=== PATIENT | female | born 1945 | race Hispanic/Latino ===

== ENCOUNTER → 2017-10-23 | Outpatient (CLI) | payer OTHER | END | disposition home or self-care (01) | LOC: RAH 11:10 | PROVIDERS: ATTEND Family Medicine | DX: Z12.31 Encounter for screening mammogram for malignant neoplasm of breast (principal) | CPT/HCPCS: 77067 ==

== ENCOUNTER 2018-06-01 08:20 | Emergency (ER) | payer OTHER ==
[2018-06-01] MEDS ORDERED: TETRACAINE HCL 0.5% 4 ML OPHTH SOLN ONE (09:06)
[2018-06-01 09:25] LABS: APPEARANCE,URINE Cloudy (CLEAR); BILIRUBIN,URINE Negative (NEGATIVE); COLOR,URINE Yellow (YELLOW); GLUCOSE, URINE (UA) Negative (NEGATIVE); KETONES,URINE Trace mg/dL (NEGATIVE); LEUKOCYTE ESTERASE ,URINE Moderate (NEGATIVE); NITRATE,URINE Negative (NEGATIVE); OCCULT BLOOD,URINE Small (NEGATIVE); PH,URINE 8.5 (5.0-8.0); PROTEIN,URINE Trace (NEGATIVE); UROBILINOGEN,URINE 0.2 mg/dL (0.2-1.0)
[2018-06-01 09:30] LABS: BASOPHILS % (AUTO) 0.8 % (0.0-5.0); EOSINOPHILS % (AUTO) 0.1 % (0.0-8.0); HEMATOCRIT 38.2 % (36-48); LYMPHOCYTES % (AUTO) 14.2 % (21.0-51.0); MEAN CORPUSCULAR HEMOGLOBIN 29.1 pg (27.0-33.0); MEAN CORPUSCULAR HGB CONC 34.5 g/dL (32.0-36.0); MEAN CORPUSCULAR VOLUME 84.2 fL (79-99); MONOCYTES % (AUTO) 4.4 % (3.0-13.0); NEUTROPHILS % (AUTO) 80.5 % (40.0-77.0); PLATELET COUNT (AUTO) 159 K/uL (130-400); RED BLOOD CELL COUNT(AUTO) 4.54 MIL/uL (4.00-5.50); RED CELL DISTRIBUTION WIDTH 15.2 % (11.0-15.5); WHITE BLOOD COUNT (AUTO) 4.1 K/uL (4.8-10.8)
[2018-06-01 09:35] LABS: CREATININE 0.7 mg/dL (0.5-1.5); POTASSIUM 3.5 mmol/L (3.5-5.1)
[2018-06-01 09:37] LABS: BACTERIA,URINE Few /HPF (None Seen); MUCUS,URINE Few LPF (None Seen); SQUAMOUS EPITHELIAL CELL,UR Few /HPF (0-2); WBC,URINE 0-1 /HPF (0-1)
[2018-06-01 09:42] LABS: ALBUMIN 4.7 g/dL (3.5-5.0); BILIRUBIN,TOTAL 0.7 mg/dL (0.2-1.0); TOTAL PROTEIN, SERUM 8.2 g/dL (6.0-8.3)
[2018-06-01] MEDS ORDERED: DiphenhydrAMINE HCL 50 MG/ML VIAL ONE (10:26)
[2018-06-01] MEDS ORDERED: KETOROLAC TROMETHAMINE 15MG/ML ONE (10:26)
== END 2018-06-01 12:50 | disposition home or self-care (01) ==
LOC: EDH 08:20
DX: I16.9 Hypertensive crisis, unspecified (principal); R51 Headache; H40.9 Unspecified glaucoma; G20 Parkinson's disease; E07.9 Disorder of thyroid, unspecified; Z90.710 Acquired absence of both cervix and uterus
CPT/HCPCS: 36415; 70450; 71045; 80053; 81001; 82550; 84484; 85025; 87804 ×2; 93005; 96374; 96375; 99284; J1200; J1885

== ENCOUNTER → 2019-11-20 | Outpatient (CLI) | payer OTHER | END | disposition home or self-care (01) | LOC: OIH 09:59 | PROVIDERS: ATTEND Family Medicine | DX: M47.817 Spondylosis without myelopathy or radiculopathy, lumbosacral region (principal); M16.12 Unilateral primary osteoarthritis, left hip | CPT/HCPCS: 72100; 73502 ==

== ENCOUNTER 2020-05-05 14:43 | Inpatient (IN) | payer OTHER ==
[~2020-05-05] VITALS: Ht 160 cm; Wt 64.0 kg
[2020-05-05 15:33] LABS: BASOPHILS % (AUTO) 0.3 % (0.0-5.0); EOSINOPHILS % (AUTO) 3.3 % (0.0-8.0); HEMATOCRIT 30.4 % (36-48); LYMPHOCYTES % (AUTO) 11.9 % (21.0-51.0); MEAN CORPUSCULAR HEMOGLOBIN 26.9 pg (27.0-33.0); MEAN CORPUSCULAR HGB CONC 31.6 g/dL (32.0-36.0); MEAN CORPUSCULAR VOLUME 85.2 fL (79-99); MONOCYTES % (AUTO) 8.1 % (3.0-13.0); NEUTROPHILS % (AUTO) 76.1 % (40.0-77.0); PLATELET COUNT (AUTO) 201 K/uL (130-400); RED BLOOD CELL COUNT(AUTO) 3.57 MIL/uL (4.00-5.50); RED CELL DISTRIBUTION WIDTH 14.8 % (11.0-15.5); WHITE BLOOD COUNT (AUTO) 5.8 K/uL (4.8-10.8)
[2020-05-05 15:45] LABS: CARBON DIOXIDE 29 mmol/L (21-32); CHLORIDE 101 mmol/L (101-111); CREATININE 0.7 mg/dL (0.5-1.5); GLOMERULAR FILTR. RATE CALC 86 mL/min (>60); GLUCOSE,RANDOM 102 mg/dL (70-105); POTASSIUM 3.7 mmol/L (3.5-5.1); SODIUM SERUM 137 mmol/L (136-145); UREA NITROGEN, BLOOD 17 mg/dL (7-18)
[2020-05-05 15:47] LABS: INR 0.98 (0.85-1.15); PARTIAL THROMBOPLASTIN TIME 30.7 SEC (26.3-35.5); PROTHROMBIN TIME 10.6 SEC (9.6-11.6)
[2020-05-05 15:49] LABS: ALBUMIN 3.5 g/dL (3.5-5.0); ASPARTATE AMINOTRANSFERASE 14 U/L (10-37); BILIRUBIN,TOTAL 0.5 mg/dL (0.2-1.0); LIPASE 78 U/L (114-286); TOTAL PROTEIN, SERUM 7.1 g/dL (6.0-8.3)
[2020-05-05] MEDS ORDERED: SODIUM CHLORIDE 0.9% 500ML 500 ML IV ONE (16:14)
[2020-05-05 16:20] LABS: ALANINE AMINOTRANSFERASE < 6 U/L (12-78)
[2020-05-05] MEDS: LACTATED RINGERS 1000ML 1,000 ML IV SCH (17:30)
[2020-05-05] MEDS ORDERED: ONDANSETRON HCL 4 MG/2 ML VIAL IVP PRN (17:30)
[2020-05-05] MEDS ORDERED: ACETAMINOPHEN 650 MG SUPPOSITORY RC PRN (17:30)
[2020-05-05] MEDS ORDERED: LABETALOL 20 MG/4 ML DISP.SYRIN IV PRN (17:30)
[2020-05-05 17:34] LABS: APPEARANCE,URINE Turbid (CLEAR); BILIRUBIN,URINE Negative (NEGATIVE); COLOR,URINE Yellow (YELLOW); GLUCOSE, URINE (UA) Negative (NEGATIVE); KETONES,URINE Trace mg/dL (NEGATIVE); LEUKOCYTE ESTERASE ,URINE Large (NEGATIVE); NITRATE,URINE Negative (NEGATIVE); OCCULT BLOOD,URINE Small (NEGATIVE); PH,URINE 6.5 (5.0-8.0); PROTEIN,URINE Trace mg/dL (NEGATIVE)
[2020-05-05 18:00] LABS: BACTERIA,URINE Few /HPF (None Seen); RBC,URINE None Seen /HPF (0-1)
[2020-05-05] MEDS ORDERED: LACTATED RINGERS 1000ML 1,000 ML IV ONE (18:21)
[2020-05-05 22:10] VITALS: BP 167/90
--- NOTE | 2020-05-05 22:10 | NUR ---
ADMISSION NOTE: Admitted to floor via stretcher from ER. Fully awake and responsive. Denies feeling of pain. VS checked and recorded. Physical assessment done. ( see CPOE flow chart for full assessment). Plan of care initiated. Has PIV site to RAC #20g with 1L of LR at 125 ml/hr at the level of 700 ml via dial flow. Talked to daughter thru phone and asked regarding pt past medical hx. home meds listed. No apparent distress noted. Cared for and needs attended.
[2020-05-05] MEDS ORDERED: CARB-38 PO ×2 (23:35)
[2020-05-05] MEDS ORDERED: ROPI1TAB13 PO (23:35)
[2020-05-05] MEDS ORDERED: ATOR20TA65 PO (23:35)
[2020-05-05] MEDS ORDERED: HYDR-4457 PO (23:35)
[2020-05-05] MEDS ORDERED: BACL10TA PO (23:35)
[2020-05-05] MEDS ORDERED: QUET50TA55 PO (23:35)
[2020-05-05] MEDS ORDERED: LEVO100T12 PO (23:35)
[2020-05-05] MEDS ORDERED: CARB1TAB41 PO (23:35)
[2020-05-05] MEDS ORDERED: LORA-192 PO (23:35)
[2020-05-06] MEDS: LACTATED RINGERS 1000ML 1,000 ML IV SCH ×3 (03:18→17:33)
[2020-05-06 03:35] VITALS: BP 155/84
[2020-05-06 04:51] LABS: CREATININE 0.5 mg/dL (0.5-1.5); POTASSIUM 3.5 mmol/L (3.5-5.1)
[2020-05-06 08:00] VITALS: BP 150/89
[2020-05-06] MEDS ORDERED: PNEUMOCOCCAL VACCINE POLYVALENT 0.5 ML/VIAL [PPV] IM ONE ×2 (09:00→20:30)
--- NOTE | 2020-05-06 10:45 | NUR ---
MBSS COMPLETED. +S/S OF ASPIRATION WITH PUREED. RECOMMEND NPO, LONG-TERM ALTERNATE MEANS OF NUTRITION/HYDRATION. PARI MUTUAL TICKET CHECKER EDUCATED Pt AND DAUGHTER EXTENSIVELY ON RISKS AND CONSEQUENCES OF ASPIRATION INCLUDING ASPIRATION PNA, DRUG RESISTANT PNA AND FATALITY. THEY VERBALIZED UNDERSTANDING. PARI MUTUAL TICKET CHECKER REVIEWED RESULTS AND RECOMMENDATIONS AT THIS TIME. PARI MUTUAL TICKET CHECKER ANSWERED ALL QUESTIONS AT THIS TIME. DAUGHTER WOULD LIKE SOME TIME TO TALK TO HER FATHER ON WHAT THEY ARE GOING TO DO. PARI MUTUAL TICKET CHECKER REVIEWED ORAL CARE RECOMMENDATIONS AND MOUTH MOISTENING OPTIONS DURING NPO STATUS. NURSE ANDREW IN THE ROOM DURING EDUCATION. Addendum: 05/06/20 at 1347 [address] [facility] Amended: Links added.
[2020-05-06 11:00] VITALS: BP 152/90
[2020-05-06] MEDS ORDERED: IOHEXOL-350 50ML VIAL IV ONE (14:23)
[2020-05-06 16:00] VITALS: BP 126/77
--- NOTE | 2020-05-06 17:33 | NUR ---
DC PLAN PATIENT LIVES WITH SPOUSE. INDEPENDENT ABLE TO PERFORM ADL'S. PATIENT HAS WHEEL CHAIR AND CANE. NO SERVICES. FEELS SAFE TO RETURN HOME. Addendum: 05/06/20 at 1734 by APOLINAR ORONA RN CM Amended: Links added.
[2020-05-06] MEDS: CEFTRIAXONE SODIUM 1 GM IVP SCH (18:09)
[2020-05-06 20:00] VITALS: BP 135/72
[2020-05-06] MEDS ORDERED: LEVODOPA PO SCH ×2 (20:30)
[2020-05-06] MEDS ORDERED: [UNRECOGNIZED DRUG - OTHER] PO SCH (20:30)
[2020-05-06] MEDS ORDERED: [UNRECOGNIZED DRUG - OTHER] PO SCH (20:30)
[2020-05-06] MEDS ORDERED: CARBIDOPA PO SCH ×2 (20:30)
[2020-05-06] MEDS ORDERED: PHARMACY COMMUNICATION MISC SCH (20:45)
[2020-05-06] MEDS: FAMOTIDINE/PF 20 MG/2 ML VIAL IV SCH (23:37)
--- NOTE | 2020-05-06 23:50 | NUR ---
INSERTED 14FR SALEM SUMP VIA RIGHT NARE USING STERILE TECHNIQUE. TUBE SECURED, CHECKED FOR PATENCY AND STARTED GLUCERNA 1.5 AT 20CC/HR, TO INCREASE BY 10CC EVERY 4HOURS UP TO GOAL OF 50CC/HR. INSERTION TOLERATED WITH MINIMAL VOICED DISCOMFORT
[2020-05-07] VITALS (7 sets, daily range): BP systolic 114–147; BP diastolic 52–95
[2020-05-07] MEDS: ATORVASTATIN CALCIUM 20 MG TABLET PO SCH ×2 (00:20→19:54)
[2020-05-07] MEDS: LORAZEPAM 1 MG TABLET PO PRN (00:20)
[2020-05-07] MEDS: ROPINIROLE HCL 1 MG TABLET PO SCH ×5 (00:20→19:56)
[2020-05-07] MEDS: LACTATED RINGERS 1000ML 1,000 ML IV SCH ×4 (03:26→23:28)
[2020-05-07] MEDS: LEVOTHYROXINE 100 MCG TABLET PO SCH (06:18)
[2020-05-07] MEDS ORDERED: CARB-38 PO (08:36)
[2020-05-07] MEDS ORDERED: NON-FORMULARY MEDICATION 1 EACH (Quetiapine Fumarate 50 MG) PO SCH (09:00)
[2020-05-07] MEDS: FAMOTIDINE/PF 20 MG/2 ML VIAL IV SCH ×2 (10:12→19:54)
[2020-05-07] MEDS: QUETIAPINE FUMARATE 25 MG TAB PO SCH (10:12)
[2020-05-07] MEDS: BACLOFEN 10 MG TABLET PO SCH (10:12)
--- NOTE | 2020-05-07 11:06 | NUR ---
DAUGHTER AT BEDSIDE CONCERNED ABOUT PATIENT NOT HAVING HER NORMAL URINE OUTPUT. JOSSELYN PRINCE CALLED. ORDERS FOR STRAIGHT CATH RECEIVED. BLADDER SCANNER SHOWING 0 CC.
--- NOTE | 2020-05-07 11:29 | NUR ---
JOSSELYN PRINCE MADE AWARE OF PENDING [facility] MEDICATIONS TO BE RECONCILE.
[2020-05-07] MEDS: HYDROCODONE/ACETAMINOPHEN 5/325 MG TAB PO PRN (11:52)
--- NOTE | 2020-05-07 12:33 | NUR ---
CALLED DR CARMONA OFFICE TWO TIMES IN WHICH EACH TIME I WAS DISCONNECTED FROM THE ANSWERING SERVICE.
[2020-05-07] MEDS: PHARMACY COMMUNICATION MISC SCH ×3 (12:45→20:45)
--- NOTE | 2020-05-07 12:57 | NUR ---
ZEV MONET FROM DR CARMONA OFFICE RETURNED MY CALL. STATED THAT DR CARMONA IS NOT TUBE HANDLER BUT THAT SHE WILL GIVE HIM THE INFORMATION ON SATURDAY.
--- NOTE | 2020-05-07 15:41 | NUR ---
SPOKE TO DR THAO REGARDING THE ORDER FOR THYROID MASS BIOPSY. NO PROCEDURE TODAY. TO BE SCHEDULED FOR SATURDAY.
--- NOTE | 2020-05-07 16:44 | NUR ---
GI CONSULT CALLED DR BRICEÑO TO HIS CELLPHONE. VOICEMAIL LEFT. ANSWERING SERVICE ALSO CALLED. WAITING FOR DR BRICEÑO TO CALL BACK.
--- NOTE | 2020-05-07 17:00 | NUR ---
DR BRICEÑO CALLED BACK. POC DISCUSSED. PATIENT NEEDS A EGD WITH PEG TUBE PLACEMENT. MR NUMBER PROVIDED. DR BRICEÑO REQUESTED A COVID PCR STAT, NPO AFTER MIDNIGHT. STATED THAT HE WILL CALL BACK LATER TODAY FOR MORE ORDERS. NO ORDERS FOR PROCEDURE AT THIS POINT.
[2020-05-07] MEDS: CEFTRIAXONE SODIUM 1 GM IVP SCH (17:22)
[2020-05-07] MEDS ORDERED: POTASSIUM CHLORIDE 10% ELIXIR 20 MEQ/15 ML UDCUP PO ONE (20:00)
[2020-05-08] VITALS (26 sets, daily range): BP systolic 131–182; BP diastolic 66–105
[2020-05-08] MEDS: PHARMACY COMMUNICATION MISC SCH ×2 (00:18→03:51)
[2020-05-08] MEDS: LEVOTHYROXINE 100 MCG TABLET PO SCH (05:32)
[2020-05-08 06:02] LABS: HEMATOCRIT 26.4 % (36-48); MEAN CORPUSCULAR HEMOGLOBIN 27.4 pg (27.0-33.0); MEAN CORPUSCULAR HGB CONC 32.6 g/dL (32.0-36.0); MEAN CORPUSCULAR VOLUME 84.1 fL (79-99); RED BLOOD CELL COUNT(AUTO) 3.14 MIL/uL (4.00-5.50); RED CELL DISTRIBUTION WIDTH 14.9 % (11.0-15.5); WHITE BLOOD COUNT (AUTO) 6.5 K/uL (4.8-10.8)
[2020-05-08 06:43] LABS: CREATININE 0.5 mg/dL (0.5-1.5); POTASSIUM 3.7 mmol/L (3.5-5.1)
[2020-05-08] MEDS: ROPINIROLE HCL 1 MG TABLET PO SCH ×4 (09:00→21:36)
[2020-05-08] MEDS: BACLOFEN 10 MG TABLET PO SCH (09:00)
[2020-05-08] MEDS: QUETIAPINE FUMARATE 25 MG TAB PO SCH (09:00)
[2020-05-08] MEDS: FAMOTIDINE/PF 20 MG/2 ML VIAL IV SCH ×2 (09:28→21:36)
[2020-05-08] MEDS: CARBIDOPA-LEVODOPA 25-100 TAB PO SCH ×3 (11:00→18:23)
[2020-05-08] MEDS ORDERED: FENTANYL CITRATE PF 50 MCG/1 ML 2ML VIAL ONE (12:20)
[2020-05-08] MEDS ORDERED: CEFAZOLIN SODIUM 1 GM VIAL ONE (12:21)
[2020-05-08] MEDS ORDERED: MIDAZOLAM HCL 1 MG/ML 2ML VIAL ONE ×2 (12:21→12:41)
[2020-05-08] MEDS ORDERED: LABETALOL HCL 5 MG/ML 20ML VIAL IV ONE (13:26)
--- NOTE | 2020-05-08 14:24 | NUR ---
PT ARRIVED BACK TO UNIT POST PEG PLACEMENT. PT STABLE BP SLIGHTLY ELEVATED. PT DENIES ANY PAIN. PT AAO. DAUGHTER AT BEDSIDE. PER MD ORDERS MEDS MAY BE GIVEN TO PT VIA PEG. FEEDING ON HOLD FOR 4 HRS, AWAITING DIETITIAN RECOMMENDATIONS. PT IN NO APPARENT DISTRESS. WILL CONTINUE TO MONITOR PT.
--- NOTE | 2020-05-08 16:14 | NUR ---
CALLED [employer] [facility]. NO ANSWER. LEFT MESSAGE, PENDING CALL BACK.
[2020-05-08] MEDS: LACTATED RINGERS 1000ML 1,000 ML IV SCH ×2 (17:30→21:36)
[2020-05-08] MEDS: CEFTRIAXONE SODIUM 1 GM IVP SCH (18:23)
[2020-05-08] MEDS: ATORVASTATIN CALCIUM 20 MG TABLET PO SCH (21:36)
[2020-05-09] VITALS (8 sets, daily range): BP systolic 115–181; BP diastolic 61–99
[2020-05-09] MEDS: LACTATED RINGERS 1000ML 1,000 ML IV SCH ×4 (01:13→20:11)
[2020-05-09 05:26] LABS: HEMATOCRIT 25.8 % (36-48); MEAN CORPUSCULAR HEMOGLOBIN 26.7 pg (27.0-33.0); MEAN CORPUSCULAR HGB CONC 32.6 g/dL (32.0-36.0); MEAN CORPUSCULAR VOLUME 81.9 fL (79-99); RED BLOOD CELL COUNT(AUTO) 3.15 MIL/uL (4.00-5.50); RED CELL DISTRIBUTION WIDTH 14.7 % (11.0-15.5); WHITE BLOOD COUNT (AUTO) 6.6 K/uL (4.8-10.8)
[2020-05-09 05:40] LABS: INR 1.15 (0.85-1.15); PROTHROMBIN TIME 12.4 SEC (9.6-11.6)
[2020-05-09 05:51] LABS: CREATININE 0.5 mg/dL (0.5-1.5); POTASSIUM 3.1 mmol/L (3.5-5.1)
[2020-05-09] MEDS ORDERED: POTASSIUM CHLORIDE 10% ELIXIR 20 MEQ/15 ML UDCUP ONE (05:59)
[2020-05-09] MEDS: CARBIDOPA-LEVODOPA 25-100 TAB PO SCH ×4 (06:18→16:28)
[2020-05-09] MEDS: LEVOTHYROXINE 100 MCG TABLET PO SCH (06:18)
[2020-05-09] MEDS ORDERED: LIDOCAINE HCL-MPF 1% 2ML VIAL IV PRN (06:45)
[2020-05-09] MEDS ORDERED: POTASSIUM CHLORIDE 20MEQ/100ML 100 ML IV PRN (06:45)
[2020-05-09] MEDS ORDERED: POTASSIUM CHLORIDE 20 MEQ ERTAB PO PRN (06:45)
[2020-05-09] MEDS: BACLOFEN 10 MG TABLET PO SCH (09:00)
[2020-05-09] MEDS ORDERED: PANTOPRAZOLE SODIUM 40 MG TABLET.DR GT SCH (09:00)
[2020-05-09] MEDS: FAMOTIDINE/PF 20 MG/2 ML VIAL IV SCH ×2 (09:00→20:12)
[2020-05-09] MEDS: ROPINIROLE HCL 1 MG TABLET PO SCH ×4 (09:00→20:12)
[2020-05-09] MEDS: QUETIAPINE FUMARATE 25 MG TAB PO SCH (09:00)
--- NOTE | 2020-05-09 11:45 | NUR ---
U/S GD RT THYROID FNA PROCEDURE PERFORMED BY DR Mary BRYANT. PUNCTURE SITE RT NECK AND PATIENT TOLERATED PROCEDURE WELL. SPECIMEN X 5 COLLECTED AND SENT TO LAB. END OF PROCEDURE AT 1130. ASPIRATION NEEDLE REMOVED AND DRESSING APPLIED. NO BLEEDING NOTED. REPORT GIVEN TO JOSH WING AND PATIENT TRANSPORTED TO [facility] VIA BED AT 1145. AAO X3 WITH NO C/O PAIN.
--- NOTE | 2020-05-09 11:45 | NUR ---
FOLLOW UP COMPLETED. Pt RECEIVED PEG OVER THE WEEKEND. NPO AT THIS TIME. [employer] WILL CONTINUE TO FOLLOW Pt. Addendum: 05/09/20 at 1147 by MINA UNNES, [facility] Amended: Links added.
--- NOTE | 2020-05-09 12:37 | NUR ---
CM NOTE/POSS SNF VS HOME WITH HH MET WITH PATIENT AND DAUGHTER, RAMOS MONET, AT BEDSIDE. [facility]A HAD BEEN COMPLETED FOR HH WITH PEG TUBE SUPPLIES. PER AUTOMATIC DOOR MECHANIC FOR [employer], RECOMMENDING SNF FOR NURSING CARE/PEG TUBE CARE/MEDICATION MANAGEMENT. THIS REPORTED TO DAUGHTER, AND SNFs IN NETWORK WITH [facility] GIVEN TO DAUGHTER. PER DAUGHTER, WILL THINK ABOUT IT. CM TO FOLLOW UP FOR DC PLAN.
--- NOTE | 2020-05-09 12:54 | NUR ---
RD NOTIFICATION Pt admitted due to dysphagia on 05/05/20 RD consulted for TF recommendations. At time of visit pt was not in room due to biopsy of thyroid mass RD spoke to daughter. As per daughter, previous known weight was of 134 lbs on 04/25/20. Current weight is of 127 lbs. This indicates a 95% UBW classified as mild malnutrition. 5% WT change in 14 days classified as severe unintentional wt loss Pt has had poor PO intake prior to admission due to dysphagia. Pt is at moderate-severe nutritional risk PEG has been placed 05/08/20 as per RN. Pt was initiated on Glucerna 1.5 TF previously with an NG tube. As per daughter no hx of DM. TF recommendations faxed to [address]C RD RECOMMENDATION: When medically feasible to initiate TF, consider Jevity 1.5 with a start rate of 20 ml/hr for first 8 hours, increase as tolerated by 5 ml Q5 hrs to a goal rate of 45 ml/hr. This provides: 1620 kcal, 69 gm protein, 821 free water Recommendation of 115 ml water flush Q4 hrs. Adjust as medically necessary. Monitor hydration, TF tolerance, labs, residuals. RD will continue to follow Contact dietary as nutritional concerns arise LABS: NA 135, K 3.1, CL 98, TOT CA 8.4, ALB 3.5, TOT PRO 7.1, LIPASE 78 LBM: 05/06/20 Addendum: 05/09/20 at [address] Amended: Links added.
[2020-05-09] MEDS: CEFTRIAXONE SODIUM 1 GM IVP SCH (17:26)
[2020-05-09] MEDS: HYDROCODONE/ACETAMINOPHEN 5/325 MG TAB PO PRN (17:27)
[2020-05-09] MEDS: ATORVASTATIN CALCIUM 20 MG TABLET PO SCH (20:12)
[2020-05-10 03:49] VITALS: BP 135/77
[2020-05-10 04:49] LABS: CREATININE 0.5 mg/dL (0.5-1.5); POTASSIUM 3.4 mmol/L (3.5-5.1)
[2020-05-10] MEDS: CARBIDOPA-LEVODOPA 25-100 TAB PO SCH ×4 (05:16→17:00)
[2020-05-10] MEDS: LEVOTHYROXINE 100 MCG TABLET PO SCH (05:16)
[2020-05-10] MEDS: POTASSIUM CHLORIDE 10% ELIXIR 20 MEQ/15 ML UDCUP PO PRN (05:16)
[2020-05-10 08:08] VITALS: BP 137/65
[2020-05-10] MEDS: FAMOTIDINE/PF 20 MG/2 ML VIAL IV SCH ×2 (08:35→19:59)
[2020-05-10] MEDS: QUETIAPINE FUMARATE 25 MG TAB PO SCH (08:35)
[2020-05-10] MEDS: LACTATED RINGERS 1000ML 1,000 ML IV SCH (08:35)
[2020-05-10] MEDS: ROPINIROLE HCL 1 MG TABLET PO SCH ×5 (08:35→21:00)
[2020-05-10] MEDS: BACLOFEN 10 MG TABLET PO SCH (08:35)
[2020-05-10 11:55] VITALS: BP 134/82
--- NOTE | 2020-05-10 12:36 | NUR ---
CM NOTE MET WITH PATIENT AND DAUGHTER AT BEDSIDE. PER DAUGHTER, PATIENT MORE AWAKE TODAY AND DAUGHTER WANTS TO DISCUSS DC PLAN WITH PATIENT FIRST BEFORE I TALK TO HER. CM TO FOLLOW UP LATER.
--- NOTE | 2020-05-10 14:29 | NUR ---
CM NOTE/[facility] PER DAUGHTER, OK WITH [facility]. [facility] COMPLETED FOR [facility]. REFERRAL MADE AND EMAILED TO MARIAH AND HERNANDEZ AT [facility] TO SUBMIT. PATIENT CONTINUES WITH PEG TUBE FEEDINGS TO REACH GOAL. CM TO FOLLOW UP.
[2020-05-10 15:31] VITALS: BP 141/86
[2020-05-10] MEDS: CEFTRIAXONE SODIUM 1 GM IVP SCH (16:59)
[2020-05-10 19:55] VITALS: BP 130/79
[2020-05-10] MEDS: ATORVASTATIN CALCIUM 20 MG TABLET PO SCH ×2 (19:59→21:00)
[2020-05-10] MEDS ORDERED: PHENOL 177 ML BOTTLE PO PRN (22:00)
[2020-05-11] VITALS (7 sets, daily range): BP systolic 89–143; BP diastolic 56–81
[2020-05-11] MEDS: CARBIDOPA-LEVODOPA 25-100 TAB PO SCH ×4 (05:48→15:33)
[2020-05-11] MEDS: LEVOTHYROXINE 100 MCG TABLET PO SCH (05:48)
[2020-05-11 05:55] LABS: HEMATOCRIT 25.5 % (36-48); MEAN CORPUSCULAR HEMOGLOBIN 26.8 pg (27.0-33.0); MEAN CORPUSCULAR HGB CONC 32.9 g/dL (32.0-36.0); MEAN CORPUSCULAR VOLUME 81.2 fL (79-99); RED BLOOD CELL COUNT(AUTO) 3.14 MIL/uL (4.00-5.50); RED CELL DISTRIBUTION WIDTH 14.7 % (11.0-15.5); WHITE BLOOD COUNT (AUTO) 5.5 K/uL (4.8-10.8)
[2020-05-11 06:21] LABS: ALBUMIN 2.3 g/dL (3.5-5.0); BILIRUBIN,TOTAL 0.4 mg/dL (0.2-1.0); CREATININE 0.4 mg/dL (0.5-1.5); MAGNESIUM 1.7 mg/dL (1.80-2.40); POTASSIUM 3.6 mmol/L (3.5-5.1); TOTAL PROTEIN, SERUM 5.6 g/dL (6.0-8.3)
[2020-05-11] MEDS ORDERED: MAGNESIUM 2GM PREMIX 50ML 50 ML IV SCH (07:45)
[2020-05-11] MEDS: FAMOTIDINE/PF 20 MG/2 ML VIAL IV SCH ×2 (09:54→20:03)
[2020-05-11] MEDS: BACLOFEN 10 MG TABLET PO SCH (09:54)
[2020-05-11] MEDS: ROPINIROLE HCL 1 MG TABLET PO SCH ×4 (09:54→20:03)
[2020-05-11] MEDS: QUETIAPINE FUMARATE 25 MG TAB PO SCH (09:54)
[2020-05-11] MEDS: SODIUM CHLORIDE 1,000 MG TAB PO SCH ×3 (09:54→20:03)
[2020-05-11] MEDS: ACETAMINOPHEN 325 MG TAB PO PRN ×2 (12:37→20:04)
--- NOTE | 2020-05-11 13:19 | NUR ---
CM NOTE PER DR. BEAVERS AND PRIMARY NURSE, ANDREW MORENO, PATIENT POSSIBLE THYROID CANCER, PENDING DR. BEAVERS AND DR. CARMONA RECOMMENDATIONS. PENDING AUTHORIZATION FOR [facility], MIGHT HAVE TO START CHEMO OR RADIATION PRIOR TO SNF, DAUGHTER AWARE. BUT WE ARE STILL PENDING FOR RECOMMENDATIONS. CM TO FOLLOW UP.
[2020-05-11] MEDS: CEFTRIAXONE SODIUM 1 GM IVP SCH (18:24)
[2020-05-11] MEDS: LACTULOSE 20 GM/30 ML UDCUP PEG SCH (18:24)
[2020-05-11] MEDS: POTASSIUM CHLORIDE 10% ELIXIR 20 MEQ/15 ML UDCUP PO PRN (20:02)
[2020-05-11] MEDS: ATORVASTATIN CALCIUM 20 MG TABLET PO SCH (20:03)
[2020-05-11] MEDS: LORAZEPAM 1 MG TABLET PO PRN (21:41)
[2020-05-12] MEDS: POTASSIUM CHLORIDE 10% ELIXIR 20 MEQ/15 ML UDCUP PO PRN (00:21)
[2020-05-12] MEDS: LACTULOSE 20 GM/30 ML UDCUP PEG SCH ×5 (00:21→20:11)
[2020-05-12 00:37] VITALS: BP 120/56
[2020-05-12 04:03] VITALS: BP 160/95
[2020-05-12 05:04] LABS: BASOPHILS % (AUTO) 0.2 % (0.0-5.0); EOSINOPHILS % (AUTO) 1.7 % (0.0-8.0); HEMATOCRIT 23.7 % (36-48); LYMPHOCYTES % (AUTO) 9.9 % (21.0-51.0); MEAN CORPUSCULAR HGB CONC 32.9 g/dL (32.0-36.0); MONOCYTES % (AUTO) 10.3 % (3.0-13.0); NEUTROPHILS % (AUTO) 77.4 % (40.0-77.0); PLATELET COUNT (AUTO) 139 K/uL (130-400); RED BLOOD CELL COUNT(AUTO) 2.89 MIL/uL (4.00-5.50); WHITE BLOOD COUNT (AUTO) 4.2 K/uL (4.8-10.8)
[2020-05-12] MEDS: LEVOTHYROXINE 100 MCG TABLET PO SCH (05:28)
[2020-05-12] MEDS: CARBIDOPA-LEVODOPA 25-100 TAB PO SCH ×4 (05:28→18:23)
[2020-05-12 05:41] LABS: ALBUMIN 2.1 g/dL (3.5-5.0); BILIRUBIN,TOTAL 0.3 mg/dL (0.2-1.0); CREATININE 0.4 mg/dL (0.5-1.5); MAGNESIUM 2.2 mg/dL (1.80-2.40); POTASSIUM 4.2 mmol/L (3.5-5.1); TOTAL PROTEIN, SERUM 5.3 g/dL (6.0-8.3)
[2020-05-12 08:14] VITALS: BP 132/74
[2020-05-12] MEDS: SODIUM CHLORIDE 1,000 MG TAB PO SCH ×3 (08:21→20:12)
[2020-05-12] MEDS: QUETIAPINE FUMARATE 25 MG TAB PO SCH (08:22)
[2020-05-12] MEDS: ROPINIROLE HCL 1 MG TABLET PO SCH ×4 (08:22→20:12)
[2020-05-12] MEDS: BACLOFEN 10 MG TABLET PO SCH (08:23)
[2020-05-12] MEDS: FAMOTIDINE/PF 20 MG/2 ML VIAL IV SCH ×2 (08:23→20:12)
[2020-05-12] MEDS: ACETAMINOPHEN 325 MG TAB PO PRN (08:31)
[2020-05-12 11:38] VITALS: BP 108/56
--- NOTE | 2020-05-12 17:00 | NUR ---
CM NOTE/ [facility] PENDING AUTH PER MARIAH AT [facility], AUTH PENDING.
[2020-05-12 17:15] VITALS: BP 118/63
--- NOTE | 2020-05-12 18:06 | NUR ---
CM NOTE/POSSIBLE HOSPICE CALL RECEIVED FROM ANDREW MORENO. PER NURSE, DR. BEAVERS TO COME AND TALK TO PATIENT AND DAUGHTER IN ROOM ABOUT PROGRESSION AND HOW FAST HER TYPE OF CANCER IS. PER NURSE, POSSIBLE HOSPICE CONSULT. ADVISED NURSE TO OBTAIN HOSPICE ORDERS IF FAMILY WISHES TO PROCEED WITH SERVICES.
[2020-05-12] MEDS: CEFTRIAXONE SODIUM 1 GM IVP SCH (18:24)
[2020-05-12 19:00] VITALS: BP 119/67
[2020-05-12] MEDS: ATORVASTATIN CALCIUM 20 MG TABLET PO SCH (20:12)
[2020-05-12] MEDS: LORAZEPAM 1 MG TABLET PO PRN (20:19)
[2020-05-13] VITALS: BP 105/66
[2020-05-13 04:00] VITALS: BP 137/75
[2020-05-13] MEDS: LEVOTHYROXINE 100 MCG TABLET PO SCH (05:46)
[2020-05-13] MEDS: CARBIDOPA-LEVODOPA 25-100 TAB PO SCH ×4 (05:47→17:46)
[2020-05-13] MEDS: ACETAMINOPHEN 325 MG TAB PO PRN ×2 (05:49→17:58)
--- NOTE | 2020-05-13 06:10 | NUR ---
patient has been asleep all night. we moved her every 2 hours on her sides. she has been tolerating her jevity 1.5 very well with residuals at 30 ml every 4 hours when i flush with 150 ml of free water. i flushed with water at 20:00, , midnight, and 04:00 am.
[2020-05-13] MEDS: FAMOTIDINE/PF 20 MG/2 ML VIAL IV SCH ×2 (08:18→22:07)
[2020-05-13] MEDS: ROPINIROLE HCL 1 MG TABLET PO SCH ×4 (08:18→22:07)
[2020-05-13] MEDS: SODIUM CHLORIDE 1,000 MG TAB PO SCH ×3 (08:18→22:07)
[2020-05-13] MEDS: QUETIAPINE FUMARATE 25 MG TAB PO SCH (08:18)
[2020-05-13] MEDS: BACLOFEN 10 MG TABLET PO SCH (08:25)
[2020-05-13 08:37] VITALS: BP 126/72
--- NOTE | 2020-05-13 10:00 | NUR ---
HOSPICE SS Referral for Hospice SW met with pt's dtr. Sara at bedside; attempted to speak w/pt, however, pt. sleeping and only opened her eyes briefly to look at this worker and fell back asleep. SW spoke with pt.'s dtr about orders for referral to hospice and dtr. reported that physician spoke with them as pt. is declining any further medical treatment and that pt. and family are in agreement for home hospice. This worker spoke with dtr. and provided information/education on hospice services, philosophy and OOHDNR, questions answered; dtr. verbalized an understanding. Dtr. spoke of pt's life prior to illness; SW provided emotional support. Dtr. signed [facility] for [facility]; referral made. SW offered [facility] services for prayer, however, dtr reported that [facility] already visited. Dtr. voiced no other SS needs or concerns at this time and was encouraged to contact SW for further needs. SW will continue to follow.
--- NOTE | 2020-05-13 11:00 | NUR ---
HOSPICE ACCEPTED [facility] accepted pt. for home hospice scheduled for tomorrow AM. Dtr made aware as well as [facility] RN. Report to be called to Vibha Aranda RN [phone]
[2020-05-13] MEDS: LACTULOSE 20 GM/30 ML UDCUP PEG SCH ×2 (11:11→17:37)
[2020-05-13 11:33] VITALS: BP 117/61
--- NOTE | 2020-05-13 12:59 | NUR ---
RD FOLLOW UP Pt is currently receiving TF Jevity 1.5 via PEG tube at a rate of 45 ml/hr Current water flushes are of 150 ml Q4 As per RN pt is tolerating TF well with a residual of 30 ml Pt has new dx of anaplastic cancer as per EMR Possible hospice upon discharge as per EMR. RD RECOMMENDATION; Continue current TF rate As per EMR pt has 2+ edema. Monitor water flushes and adjust as medically necessary Monitor TF tolerance Contact dietary as nutritional concerns arise LABS: WBC 4.2, NA 131, K 4.2, CL 48, CREAT 0.4, BG 120, TOT CA 8.4, ALB 2.1, TOT PRO 5.3 Addendum: 05/13/20 at [address] Amended: Links added.
--- NOTE | 2020-05-13 14:37 | NUR ---
DNR PT DAUGHTER RAMOS SIGNED DNR FOR HOSPITAL AND OUTSIDE DNR,THEY ARE IN THE CHART.
[2020-05-13 17:28] VITALS: BP 121/69
[2020-05-13] MEDS: CEFTRIAXONE SODIUM 1 GM IVP SCH (17:45)
[2020-05-13 19:31] VITALS: BP 109/59
--- NOTE | 2020-05-13 19:40 | NUR ---
Shift round: Received pt calm and resting comfortably in bed. Awake and responsive, not in respiratory distress. Daughter at bedside. On continuous feeding with Jevity 1.5 at 45 ml/hr via feeding pump thru a peg tube - patent and intact. Peg tube at the level of 4cm. Stoma site cleansed and gauze was changed. Noted a small amount of formula leaking in it. No excoriation noted to stoma site. ( See CPOE flow chart for full assessment.) Cared for.
[2020-05-13] MEDS: LORAZEPAM 1 MG TABLET PO PRN (22:06)
[2020-05-13] MEDS: ATORVASTATIN CALCIUM 20 MG TABLET PO SCH (22:07)
[2020-05-14 00:03] VITALS: BP 124/65
[2020-05-14] MEDS: LACTULOSE 20 GM/30 ML UDCUP PEG SCH ×3 (00:04→12:00)
[2020-05-14 04:33] VITALS: BP 161/76
[2020-05-14] MEDS: CARBIDOPA-LEVODOPA 25-100 TAB PO SCH ×2 (06:08→10:35)
[2020-05-14] MEDS: LEVOTHYROXINE 100 MCG TABLET PO SCH (06:08)
[2020-05-14 08:10] VITALS: BP 152/71
[2020-05-14] MEDS: BACLOFEN 10 MG TABLET PO SCH (09:00)
[2020-05-14] MEDS: SODIUM CHLORIDE 1,000 MG TAB PO SCH (10:35)
[2020-05-14] MEDS: QUETIAPINE FUMARATE 25 MG TAB PO SCH (10:35)
[2020-05-14] MEDS: FAMOTIDINE/PF 20 MG/2 ML VIAL IV SCH (10:35)
[2020-05-14] MEDS: ROPINIROLE HCL 1 MG TABLET PO SCH (10:35)
[2020-05-14 11:17] VITALS: BP 128/63
--- NOTE | 2020-05-14 11:20 | NUR ---
CALL RECD THAT EQUIPMENT DELIVERED FOR PT, [facility] READY TO REC PATIENT CONFIRMED DC ADDRESS WITH DAUGHTER RAMOS MONET FOR EMS SET UP. ORDER ENTERED, PRIOR AUTH REQUEST TO [facility], FAXED FORMED TO [facility], GREGORY RN AND ARMED SECURITY OFFICER, DC ORDER RECD NUMBER FOR YOLA KARI NURSE CUSTOMER CARE AGENT ON CHART FOR JAI TO CALL REPORT, Addendum: 05/14/20 at 1123 by RONNIE ALMEIDA RN CM Amended: Links added.
--- NOTE | 2020-05-14 14:00 | NUR ---
note SPOKE TO HOSPICE NURSE YOLA PIERCE RN AND GAVE HER REPORT ON PATIENT COMING TO THEIR SERVICES. DAUGHTER REMAINS AT HER SIDE AND SHE HAS SIGNED DISCHARGE INSTRUCTIONS. NO QUESTIONS FOR ME AT THIS TIME. PATIENT STABLE AND NO PAIN UPON DISCHARGE. SHE IS GOING HOME WITH EMS.
== END 2020-05-14 14:50 | disposition hospice, home (50) | DRG 644 ==
LOC: EDH 14:43 → EDHIP 17:30 → OBSVTOIN 17:30 → 3CH 21:23
PROVIDERS: ADMIT Internal Medicine; ATTEND Internal Medicine
PROC: 3E0234Z Introduction of Serum, Toxoid and Vaccine into Muscle, Percutaneous Approach (ICD-10-PCS; 2020-05-06)
PROC: 0DH63UZ Insertion of Feeding Device into Stomach, Percutaneous Approach (ICD-10-PCS; 2020-05-08)
PROC: 0GBH3ZX Excision of Right Thyroid Gland Lobe, Percutaneous Approach, Diagnostic (ICD-10-PCS; principal; 2020-05-09)
DX: C73 Malignant neoplasm of thyroid gland (principal); N39.0 Urinary tract infection, site not specified; E04.9 Nontoxic goiter, unspecified; R13.12 Dysphagia, oropharyngeal phase; R05 Cough; G20 Parkinson's disease; Z66 Do not resuscitate; Z51.5 Encounter for palliative care; F02.80 Dementia in other diseases classified elsewhere, unspecified severity, without behavioral disturbance, psychotic disturbance, mood disturbance, and anxiety; D64.9 Anemia, unspecified; I10 Essential (primary) hypertension; K21.00 Gastro-esophageal reflux disease with esophagitis, without bleeding; K29.00 Acute gastritis without bleeding; B96.20 Unspecified Escherichia coli [E. coli] as the cause of diseases classified elsewhere; R62.7 Adult failure to thrive; F41.9 Anxiety disorder, unspecified; Z20.828 Contact with and (suspected) exposure to other viral communicable diseases; Z79.899 Other long term (current) drug therapy; Z86.73 Personal history of transient ischemic attack (TIA), and cerebral infarction without residual deficits; Z93.1 Gastrostomy status; Z74.01 Bed confinement status; Z68.25 Body mass index [BMI] 25.0-25.9, adult; Z23 Encounter for immunization
CPT/HCPCS: 36415; 43246; 60100; 70360; 70492; 71045; 74230; 76942; 80048; 80053; 81001; 83690; 83735; 84100; 84443; 84484; 85025; 85027; 85610; 85730; 87077; 87088; 87186; 87426; 90732; 92611; 93005; 93970; 97039; A4606; G0009; G0378; J0690; J0696; J2250; J3010; J3475; J3490; J7030; J7040; J7120; Q9967; U0003

== ENCOUNTER 2020-06-27 13:06 | Observation (INO) | payer OTHER ==
[~2020-06-27] VITALS: Ht 172.7 cm; Wt 51.9 kg
[~2020-06-27 13:06] MED LIST: ATOR20TA65 PO; BACL10TA PO; CARB-38 PO; CARB1TAB41 PO; HYDR-4457 PO; LEVO100T12 PO; LORA-192 PO; QUET50TA22 PO; ROPI1TAB13 PO
[2020-06-27 16:36] LABS: BASOPHILS % (AUTO) 0.3 % (0.0-5.0); EOSINOPHILS % (AUTO) 3.7 % (0.0-8.0); HEMATOCRIT 34.9 % (36-48); LYMPHOCYTES % (AUTO) 6.9 % (21.0-51.0); MEAN CORPUSCULAR HEMOGLOBIN 25.7 pg (27.0-33.0); MEAN CORPUSCULAR HGB CONC 29.8 g/dL (32.0-36.0); MEAN CORPUSCULAR VOLUME 86.4 fL (79-99); MONOCYTES % (AUTO) 6.2 % (3.0-13.0); NEUTROPHILS % (AUTO) 82.4 % (40.0-77.0); PLATELET COUNT (AUTO) 244 K/uL (130-400); RED BLOOD CELL COUNT(AUTO) 4.04 MIL/uL (4.00-5.50); WHITE BLOOD COUNT (AUTO) 9.8 K/uL (4.8-10.8)
[2020-06-27 16:51] LABS: INR 1.07 (0.85-1.15); PROTHROMBIN TIME 11.4 SEC (9.6-11.6)
[2020-06-27 16:52] LABS: PARTIAL THROMBOPLASTIN TIME 33.4 SEC (26.3-35.5)
[2020-06-27 16:55] LABS: ALBUMIN 2.9 g/dL (3.5-5.0); BILIRUBIN,TOTAL 0.8 mg/dL (0.2-1.0); CREATININE 0.5 mg/dL (0.5-1.5); TOTAL PROTEIN, SERUM 7.1 g/dL (6.0-8.3)
[2020-06-27] MEDS ORDERED: HYDRALAZINE HCL 20 MG/ML VIAL IV PRN (19:00)
[2020-06-27] MEDS ORDERED: MORPHINE SULFATE 2 MG/ML 1ML SYG IV PRN (19:00)
[2020-06-27] MEDS ORDERED: GLUCAGON 1MG KIT 1 MG ML IM PRN (19:00)
[2020-06-27] MEDS ORDERED: DEXTROSE 50%-WATER 50 ML DISP.SYRIN IV PRN (19:00)
[2020-06-27] MEDS ORDERED: MAGNESIUM 2GM PREMIX 50ML 50 ML IV PRN (19:00)
[2020-06-27] MEDS ORDERED: ZOLPIDEM TARTRATE 5 MG TAB PO PRN (19:00)
[2020-06-27] MEDS ORDERED: MAG HYDROX/AL HYDROX/SIMETH ES 30 ML SUSP UDCUP PO PRN (19:00)
[2020-06-27] MEDS ORDERED: LACTULOSE 20 GM/30 ML UDCUP PO PRN (19:00)
[2020-06-27] MEDS ORDERED: DiphenhydrAMINE HCL 50 MG/ML VIAL IV PRN (19:00)
[2020-06-27] MEDS ORDERED: GUAIFENESIN-DM 200/20 MG 10 ML PO PRN (19:00)
[2020-06-27] MEDS ORDERED: NITROGLYCERIN 0.4 MG SL TAB SL PRN (19:00)
[2020-06-27] MEDS ORDERED: DIPHENHYDRAMINE HCL 25 MG CAPSULE PO PRN (19:00)
[2020-06-27] MEDS ORDERED: ONDANSETRON HCL 4 MG/2 ML VIAL IV PRN (19:00)
[2020-06-27] MEDS ORDERED: ACETAMINOPHEN-CODEINE 300/30MG TAB PO PRN (19:00)
[2020-06-27] MEDS: DEXTROSE 5 % AND 0.9 % NACL 1,000 ML IV SCH (19:15)
[2020-06-27] MEDS: FAMOTIDINE/PF 20 MG/2 ML VIAL IV SCH (21:00)
[2020-06-27] MEDS ORDERED: FAMOTIDINE/PF 20 MG/2 ML VIAL IV ONE (21:22)
[2020-06-27 23:45] VITALS: BP 142/72
[2020-06-28] MEDS ORDERED: MAGNESIUM 2GM PREMIX 50ML 50 ML IV PRN (03:30)
[2020-06-28] MEDS ORDERED: LIDOCAINE HCL-MPF 1% 2ML VIAL IV PRN (03:30)
[2020-06-28 04:00] VITALS: BP 139/68
[2020-06-28 08:37] VITALS: BP 168/91
[2020-06-28] MEDS: FAMOTIDINE/PF 20 MG/2 ML VIAL IV SCH (11:31)
[2020-06-28] MEDS: DEXTROSE 5 % AND 0.9 % NACL 1,000 ML IV SCH ×2 (11:32→16:17)
[2020-06-28 11:47] VITALS: BP 139/81
[2020-06-28] MEDS: POTASSIUM CHLORIDE 20MEQ/100ML 100 ML IV PRN ×2 (11:58→16:18)
[2020-06-28 20:00] VITALS: BP 123/67
== END 2020-06-28 22:25 | disposition home health service (06) ==
LOC: EDH 13:06 → EDHIP 19:00 → 3CH 22:56
PROVIDERS: ADMIT Internal Medicine Pulmonary Disease; ATTEND Internal Medicine Pulmonary Disease
DX: Z43.1 Encounter for attention to gastrostomy (principal); Z20.828 Contact with and (suspected) exposure to other viral communicable diseases; E86.9 Volume depletion, unspecified; E07.9 Disorder of thyroid, unspecified; D63.8 Anemia in other chronic diseases classified elsewhere; G20 Parkinson's disease; I10 Essential (primary) hypertension; I69.354 Hemiplegia and hemiparesis following cerebral infarction affecting left non-dominant side; F03.90 Unspecified dementia, unspecified severity, without behavioral disturbance, psychotic disturbance, mood disturbance, and anxiety; Z79.899 Other long term (current) drug therapy
CPT/HCPCS: 36415; 43762; 74176; 80053; 82948 ×3; 85025; 85610; 85730; 87426; 96361; 96374; 96375; 99284; G0378 ×27; J3480 ×2; J3490 ×2; J7042; U0003